=== PATIENT | male | born 1965 | race Caucasian/White ===

== ENCOUNTER 2017-03-08 18:40 | Inpatient (IN) | payer OTHER ==
[~2017-03-08] VITALS: Ht 185.4 cm; Wt 125.3 kg
[2017-03-08 19:40] VITALS: PULSE 77
[2017-03-08 19:57] VITALS: BP 141/89; PULSE 68; RESP 20; O2SAT 98
[2017-03-08] MEDS ORDERED: Alum-Mag Hydrox-Simeth 30 mL Suspension PO PRN (20:10)
[2017-03-08] MEDS ORDERED: Ondansetron 2 mg/mL 2 mL Inj IVPUSH PRN (20:10)
[2017-03-08] MEDS ORDERED: Senna-Docusate 8.6-50 mg Tablet PO PRN (20:10)
[2017-03-08] MEDS ORDERED: Polyethylene Glycol (PEG) 17 Gm Powder PO PRN (20:10)
[2017-03-08] MEDS ORDERED: Heparin 25K Unit/500mL 0.45 NS 25,000 UNIT in IV Premix 1 EACH IV SCH (20:40)
--- NOTE | 2017-03-08 21:00 | NUR ---
Admission: Pt admitted to room 2027 at 1935 from [facility]. Pt arrived in stable condition on 2L of oxygen per NC with a Heparin gtt infusing at 1000 units/hour or 20 mls/hour (gtt started at 1810 at [place]). Pt denied any chest pain. Vital signs stable. Initial assessment completed as charted with admission. Dr. Moncada at the bedside at 2024. Heparin gtt will continue as ordered. Pt to be NPO after MN. Will cont. to closely monitor. Next PTT at 0000.
--- NOTE | 2017-03-08 21:00 | PCM.HPMED ---
Subjective Date of Service Mar 08, 2017 Primary Provider: Admitting Physician: Per Conroy MD Primary Care Physician: Jon Hayward MD Attending Physician: Per Conroy MD Chief Complaint: Chest pain during stress test History of Present Illness: Ambrocio Pelayo is a 52-year-old man with past medical history significant for hypertension, hyperlipidemia, prediabetes and is a smoker who presented to the [facility] emergency department today due to chest pain during a scheduled outpatient stress test. Patient has had several years worth of exertional chest pain as well as some mild intermittent chest pain at rest. Patient has stated that the chest pain was mild, dull, substernal without any radiation but is accompanied by shortness of breath. The pain is elicited by exercise and stops seconds after exercise stops. Patient denies any palpitations, loss of consciousness, nausea, vomiting, diaphoresis, orthopnea, paroxysmal nocturnal dyspnea. Patient does note some lower extremity edema for which she was prescribed Lasix but he has not been taking it. Patient has a history of varicose veins which he believes is the cause of his edema. In the emergency department the patient was chest pain-free. Full dose aspirin was given, 300 mg dose of clopidogrel, and the patient started on heparin drip cardiac protocol. Also given 5 mg of IV metoprolol 1. At [facility] emergency department the patient's vital signs were blood pressure of 164/82, heart rate 82, respiratory rate 14, O2 saturation 99% on nasal cannula at 2 L a minute. Troponin I was negative. EKG showed Q waves in the patrick- lateral leads. Dr. Bass was contacted by the emergency department and requested the patient be transferred here for further evaluation. Review of Systems: A comprehensive review of systems was conducted with the patient and found to be negative except as above in the History of Present Illness. Allergies Coded Allergies: No Known Allergies (Verified Allergy, Unknown, 03/08/17) Home Medications Lisinopril 40 mg by mouth daily Metformin 500 mg by mouth daily Atorvastatin 40 mg by mouth at bedtime PMH Sinusitis Reactive airway disease Prediabetes Hypertension Hypercholesterolemia Surgical History Kidney surgery Family History Patient's father had 5 vessel bypass 20 years ago. Social History Hx Alcohol Use: No Hx Substance Use: No Hx Tobacco Use: Yes Smoking Status: Current Every Day Smoker Exam Vital Signs Vital Sign - Last Date Time Temp Pulse Resp B/P Pulse Ox O2 Delivery O2 Flow Rate FiO2 03/08/17 19:57 36.9 68 20 141/89 98 Nasal Cannula 2.00 Exam HEENT: Normocephalic, atraumatic. External ears without defect. Pupils equal, round, and reactive to light and accommodation. Anicteric sclerae, moist conjunctivae, and no lid lag. Oropharynx free of erythema and cobble stoning with moist mucosa. Neck: Supple with full range of motion. No jugular venous distension. No bruits. No lymphadenopathy or thyromegaly. Cardiovascular: Regular rate and rhythm with no murmurs, rubs, or gallops appreciated Pulmonary: Clear to auscultation bilaterally with no crackles, wheezes, or rhonchi. Normal respiratory effort with no use of accessory muscles. Abdomen: Bowel tones present. Soft, nontender, nondistended. No hepatosplenomegaly or masses appreciated. Extremities: No clubbing, cyanosis, or lymphadenopathy appreciated. Bilateral pitting lower extremity edema of the ankles. Skin: Normal temperature, turgor, and texture; no rash, ulcers, or subcutaneous nodules appreciated. Neurological: Cranial nerves grossly intact. Normal muscle strength, tone, and bulk. Reflexes, coordination, and sensory function within normal limits. No known gait impairment. Psychiatric: Normal mood and affect. Alert and oriented to person, place, and time. Lab and Diagnostics Labs CBC WBC 10.6 Hemoglobin 15.2 Hematocrit 45.2 Platelets 273 Troponin I 0.53 reference range 0.1- 1.5 is indeterminant, greater than 1.5 positive B MP Glucose 99 A BUN 19 Creatinine 1.0 Sodium 145 Potassium 4.6 Chloride 108 Carbon dioxide 26 Calcium 9.3 Total protein 7.1 Albumin 3.9 Bilirubin 0.4 Alkaline phosphatase 102 AST 29 ALT 45 Magnesium 1.9 X-Rays, CTs and MRIs Chest x-ray portable one view from outside facility Impression: Negative chest Assessment & Plan Ambrocio Pelayo is a 52-year-old man with past medical history significant for hypertension, hyperlipidemia, prediabetes and is a smoker who presented to the [facility] emergency department today due to chest pain during a scheduled outpatient stress test. Typical angina with a positive stress test, present on admission, active - DDx includes NSTEMI, demand ischemia, reactive airway disease exacerbation. - ECG revealed Q waves in anterolateral leads - Initial troponin-I 0.51. Trending troponins 3. - Lipid panel pending, A1C - Supplemental oxygen as needed. - Patient received full dose aspirin, 300 mg of Plavix, 5 mg of IV metoprolol, initiated on heparin drip. - Aspirin 81 mg daily, 75 mg Plavix daily, continue heparin drip - Sublingual nitroglycerin as needed. - Metoprolol tartrate 25 mg - Morphine when necessary for chest discomfort. Ativan when necessary anxiety. - Atorvastatin 40 mg HS. - Echocardiogram in a.m. - Telemetry monitoring - Nothing by mouth after midnight for probable catheterization tomorrow - Dr. Bass consulted by outside facility. We appreciate his time and expertise. Chronic issues, present on admission, stable: Prediabetes -Hold metformin -Monitor blood sugar -Heart healthy/constant carb diet Hyperlipidemia -Continue statin Hypertension -Continue lisinopril Nicotine dependence -Nicotine patch offered CODE STATUS: Full code Patient is admitted under inpatient status with expected length of stay greater than 2 midnights due to severity of presenting symptoms, risk of adverse event, and complexity of treatment plan. VTE Prophylaxis Indicated: Meets Criteria for Anticoag Therapy Resuscitation Status: CPR: Attempt Resuscitation Attending Statement The patient was seen and examined together with Dr. Moncada on 03/08 and I agree with the history, exam and plan as outlined in the note above. Angelita Moncada DO Mar 08, 2017 20:11 Vignesh Moreno MD Mar 08, 2017 23:21
[2017-03-08 21:15] VITALS: PULSE 76
[2017-03-08 21:37] LABS: Creatine Kinase 128 U/L (21-232); Magnesium 1.9 mg/dL (1.6-2.6)
[2017-03-08] MEDS: Sodium Chloride LOK Flush 10 mL Syringe IVFLUSH SCH (21:38)
[2017-03-08] MEDS ORDERED: METF500T4 PO (21:53)
[2017-03-08] MEDS ORDERED: LISI40TA PO (21:53)
[2017-03-08] MEDS ORDERED: LIP40 PO (21:54)
[2017-03-08 23:29] VITALS: BP 144/85; PULSE 78; RESP 17; O2SAT 99
[2017-03-08 23:50] VITALS: PULSE 73
[2017-03-09] VITALS (20 sets, daily range): BP systolic 122–155; BP diastolic 78–107; PULSE 54–95; RESP 8–16; O2SAT 93–98
[2017-03-09] MEDS: Heparin 5,000 Unit/mL Inj IVPUSH PRN ×2 (01:48→07:55)
[2017-03-09 02:18] LABS: BASOPHILS % (AUTO) 0.4 % (0-3); EOSINOPHILS % (AUTO) 3.9 % (0-5); MONOCYTES % (AUTO) 7.6 % (4-12); Mean Corpuscular Hemoglobin 29.7 pg (27.0-35.0); Mean Corpuscular Volume 86.2 fL (81-100); NEUTROPHILS % (AUTO) 51.6 % (40-74); Platelet Count 236 bil/L (150-400)
[2017-03-09 02:58] LABS: Creatine Kinase 117 U/L (21-232)
--- NOTE | 2017-03-09 05:18 | NUR ---
Cardiac/Provision of Educational Information: Pt has remained chest pain free throughout the night in a SR. Noted ectopy on the monitor consisting of PACs. Pt has been NPO since [place]. Heparin gtt infusing at 1200 units/hour. Next PTT at 0600. Smoking cessation packet provided to the pt as well as the Cardiac/Heart Attack and Diabetic booklets. Pt currently has a Nicoderm patch to the CELESTE.
[2017-03-09] MEDS: Sodium Chloride LOK Flush 10 mL Syringe IVFLUSH SCH ×2 (07:51→16:49)
[2017-03-09] MEDS ORDERED: CHOL100043 PO (09:02)
[2017-03-09] MEDS ORDERED: ASPI-973 PO (09:02)
--- NOTE | 2017-03-09 11:17 | CONS ---
[address] [address] CONSULTATION REPORT PATIENT: MOUNA LEO : 1965 MR#: [id number] ADMIT: 03/08/2017 JOB ID: [id number] DATE OF SERVICE: 03/09/2017 CHIEF COMPLAINT: Chest discomfort, abnormal stress test. HISTORY OF PRESENT ILLNESS: This 52-year-old gentleman has multiple risk factors for coronary artery disease. He has history of hypertension, dyslipidemia, and diabetes. He is being treated with metformin. He came to [facility] complaining of chest pain. Dr. Orantes performed a stress test. I was asked to review the stress test. EKG showed prior anterior DE with slight ST elevation in leads with pre-existing Q-waves. However, the patient had chest discomfort. He describes it as a tightness or heaviness in his chest while he was on the treadmill. Troponin I done at [facility] was positive. The initial one was negative, and the second one trended upwards and was positive. He was transferred to [facility]. Since he has been in the hospital, he has been pain free. The patient has not been very active. He states he gets chest tightness and shortness of breath with plmy-pk-tqlxudon exertion. 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 REVIEW OF SYSTEMS: Comprehensive review of system was done. Pertinent negatives are no GI or bleeding. No strokes. No upcoming surgeries. He admits being depressed. He is not on any medications. PAST MEDICAL HISTORY: Diabetes, hypertension, hypercholesterolemia, reactive airway disease. PAST SURGICAL HISTORY: He has had surgery on his kidneys. FAMILY HISTORY: He is adopted and does not know much in terms of family history. ALLERGIES: None. MEDICATIONS AT HOME: Lisinopril, metformin, and atorvastatin. PERSONAL HISTORY: He smokes about half a pack of cigarettes a day. Nondrinker, and denies any drug abuse. PHYSICAL EXAMINATION: On examination, comfortable. Replies in short sentences. Slightly depressed facies. Vitals are stable. Blood pressure 141/90, pulse 68, saturation 98%. Neck: Supple. Chest: Clear. Heart sounds S1, S2 regular. No gallops. Abdomen is soft. No organomegaly. Lungs: Clear to auscultation. Extremities: Negative for CCE. Mild edema of the ankles. DIRECTOR OF DEMENTIA OPERATIONS: Alert and oriented. LABORATORY DATA: Was reviewed. Creatinine is normal. White count is normal. His troponin T is negative. LDL cholesterol 71, HDL is 32. DIAGNOSTIC DATA: EKG shows prior anterior DE. ASSESSMENT AND PLAN: Chest discomfort: This gentleman has multiple risk factors for coronary artery disease. He has an EKG showing prior anterior infarct. The patient believes, about two years ago, he did have a rather severe episode of chest discomfort, and I am wondering if that was the culprit event. Given the fact that he had chest discomfort on his stress test, I have recommended angiography. The patient is agreeable. Risks, benefits, and alternatives were explained. This shall be done later today. In the interim, continue with beta blockers and MYRIAM inhibitors. His LDL is near target. His HDL is low, and he needs to start therapeutic lifestyle changes, especially smoking cessation and regular exercise. I thank you for letting me be involved in his care.
[2017-03-09] MEDS ORDERED: Heparin 1,000 Units/500 mL NS Premix IV ONE (11:59)
[2017-03-09] MEDS ORDERED: 0.9% Sodium Chloride 1,000 ML ONE (11:59)
[2017-03-09] MEDS ORDERED: Heparin 10,000 Unit/1,000 mL NS Premix IV ONE (11:59)
--- NOTE | 2017-03-09 12:11 | NUR ---
off to label stitcher Tele made aware. Pt aware of plan of care. No questions at this time. 2 patent IV's. Heparin gtt infusing. Pedal pulses marked. Addendum: 03/09/17 at 1300 by TORIBIO CALLEJAS RN Heparin gtt stopped prior to pt leaving floor.
[2017-03-09] MEDS ORDERED: Heparin 1,000 Unit/mL 10 mL Inj ONE (12:13)
[2017-03-09] MEDS ORDERED: Nitroglycerin 50,000 mcg/250 mL D5W Premix IV ONE (12:13)
[2017-03-09] MEDS ORDERED: fentaNYL-PF 50 mCg/mL 2 mL Inj ONE (12:22)
--- NOTE | 2017-03-09 13:57 | CS94 ---
[address] [address] DIAGNOSTIC CARDIAC CATHETERIZATION PATIENT: MOUNA LEO : 1965 MR#: [id number] ADMIT: 03/08/2017 JOB ID: [id number] SERVICE DATE: PROCEDURE: Selective right and left coronary angiography, left heart catheterization. INDICATION: Abnormal stress test. PROCEDURAL DETAILS: Please refer to the procedure log for complete details. Briefly, obtained access. Standard Marcela catheters were used. ANGIOGRAPHIC FINDINGS: 1. Left main: Long. No significant disease. 2. LAD is a large vessel. In its mid segment it is totally occluded. There is a short segment occlusion. The distal vessel is seen via ywsy-aj-opzt and cepan-iy-bllv collaterals. 3. Circumflex is nondominant. It gives collaterals to the distal right. In its ostium it has about a 30% lesion and another lesion in its proximal to mid segment of about 30%. No critical stenosis. The circumflex gives collaterals to the distal right coronary artery. 4. Right coronary artery is totally occluded proximally. There are bridging collaterals to the distal RCA. The distal RCA as mentioned is also seen via kwhq-xk-rsfku collaterals. The right coronary artery is not amenable to percutaneous intervention. 5. Left heart catheterization revealed an LVEDP of about 25. There was no gradient upon pullback. LV-gram showed severe LV dysfunction with EF of around 15% to 20%. ASSESSMENT AND PLAN: This gentleman has severe left ventricular (LV) dysfunction. His right coronary artery is very well suited for bypass surgery, as is his left anterior descending (LAD). Both of them are good distal targets. I will be referring him for consideration of coronary artery bypass grafting.
[2017-03-09] MEDS ORDERED: 0.9% Sodium Chloride 250 ML BOLUS IV PRN (15:05)
[2017-03-09] MEDS ORDERED: Sodium Chloride LOK Flush 10 mL Syringe IVFLUSH PRN (15:05)
[2017-03-09] MEDS ORDERED: Atropine 1 mg/10 mL (Code) Syringe IVPUSH PRN (15:05)
[2017-03-09] MEDS ORDERED: 0.9% Sodium Chloride 400 ML (4 HRS) IV ONE (15:05)
--- NOTE | 2017-03-09 16:20 | NUR ---
Return from director of labor relations AOX3. Tele SR 60-70's w/pac's. O2 on RA 80's. Increased O2 to 3L with adequate sats. NS infusing @ 100cc/hr until 6PM. Bedrest until 6PM. Care ongoing. Addendum: 03/09/17 at 1650 by TORIBIO CALLEJAS RN Right groin site soft, non-tender. Right pedal pulse weak as before he left for director of labor relations.
--- NOTE | 2017-03-09 17:07 | PCM.PNMED ---
Subjective Date of Service Mar 09, 2017 Subjective 52-year-old man with exertional chest pain presents with abnormal exercise treadmill test and unstable angina. No further symptoms overnight at rest. He expresses chest pain with minimal ambulation. No orthopnea dyspnea or PND. Exam Vital Signs Vital Sign - Last Date Time Temp Pulse Resp B/P Pulse Ox O2 Delivery O2 Flow Rate FiO2 03/09/17 16:29 36.7 70 12 138/84 94 Nasal Cannula 03/09/17 07:44 2.00 Intake and Output 03/08/17 03/08/17 03/09/17 Cumulative From/Thru 15:00 23:00 07:00 03/08/17 19:48 - 03/09/17 04:56 Intake Total 827 ml 827 ml Output Total 800 ml 800 ml Balance 27 ml 27 ml Intake Oral 630 ml 630 ml IV Total 197 ml 197 ml Output Urine Total 800 ml 800 ml # Bowel Movements 0 0 Exam General: Moderately obese, no acute distress HEENT: sclerae anicteric, oral mucosa moist Neck: no JVD Chest: clear to auscultation Cardiac: S1S2, no murmur Abdomen: BS normal, non-tender Extremities: Trace edema Neuro: A&O, cranial nerves symmetric, motor strength 5/5, coordination normal IVs and Medications Medications Reviewed: Medications were reviewed in detail Lab and Diagnostics Result Diagram: 03/09/17 02003/09/17 020 X-Rays, CTs and MRIs Chest x-ray portable one view from outside facility Impression: Negative chest Additional Diagnostics Coronary catheterization 03/09/17 1. Left main: Long. No significant disease. 2. LAD is a large vessel. In its mid segment it is totally occluded. There is a short segment occlusion. The distal vessel is seen via qpgo-qk-toif and lhesf-pz-dage collaterals. 3. Circumflex is nondominant. It gives collaterals to the distal right. In its ostium it has about a 30% lesion and another lesion in its proximal to mid segment of about 30%. No critical stenosis. The circumflex gives collaterals to the distal right coronary artery. 4. Right coronary artery is totally occluded proximally. There are bridging collaterals to the distal RCA. The distal RCA as mentioned is also seen via ekwl-ff-jsknt collaterals. The right coronary artery is not amenable to percutaneous intervention. 5. Left heart catheterization revealed an LVEDP of about 25. There was no gradient upon pullback. LV-gram showed severe LV dysfunction with EF of around 15% to 20%. . Assessment & Plan Ambrocio Pelayo is a 52-year-old man with past medical history significant for hypertension, hyperlipidemia, prediabetes and is a smoker who presented to the [facility] emergency department today due to chest pain during a scheduled outpatient stress test. Acute, active problems: #Unstable angina with a positive stress test, present on admission, active. ECG revealed Q waves in anterolateral leads. Troponins negative 3. Catheterization reveals left main equivalent disease. - Cardiology to orchestrate referral for CABG - Hold P2Y12 inhibitor - Nitrates, metoprolol and/or morphine for recurrent chest pain - Continue heparin drip - Continue low-dose aspirin, atorvastatin # Acute systolic congestive heart failure, present on admission. He is asymptomatic at rest. NYHA class III symptoms with exertion. Ischemic etiology. - Continue MYRIAM inhibitor, metoprolol - No need for IV diuretic at present # Hypertension -Continue lisinopril - Monitor with adjustment of other cardiac medications Chronic issues, present on admission, stable: Prediabetes -Hold metformin -Monitor blood sugar -Heart healthy/constant carb diet Hyperlipidemia -Continue high intensity statin Nicotine dependence -Nicotine patch offered CODE STATUS: Full code Anticipate hospital transfer in 1-2 days VTE Prophylaxis: Other (IV heparin) Resuscitation Status: CPR: Attempt Resuscitation Time spent 30 minutes Miguelito Pedraza MD Mar 09, 2017 17:07
--- NOTE | 2017-03-09 17:53 | NUR ---
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 Right groin perclose without bleeding or hematoma. Pedal pulse present. Family at bedside. Patient taking PO but HNV. Report called to receiving RN. Patient transferred back to room 2027 by bed at 1600.
[2017-03-10] MEDS: Sodium Chloride LOK Flush 10 mL Syringe IVFLUSH SCH ×2 (00:26→08:12)
[2017-03-10 03:51] VITALS: BP 148/81; PULSE 68; RESP 14; O2SAT 98
--- NOTE | 2017-03-10 04:30 | NUR ---
Procedure site Right groin perclose without bleeding or hematoma; gauze dressing changed once without further bleeding. Pedal pulse present. Pt able to ambulate safely to BR, voiding adequately, IV saline locked. No complaints of pain. Hourly rounding ongoing.
[2017-03-10 05:44] VITALS: PULSE 66
[2017-03-10 08:00] VITALS: PULSE 66
[2017-03-10 08:19] VITALS: BP 165/102; PULSE 61; RESP 14; O2SAT 98
--- NOTE | 2017-03-10 11:56 | DRSVH ---
[facility] [address] [place] [address] Echocardiogram Report Name: MOUNA LEO Date: 02/13 Height: 73 in Hospital Exam Location: [facility] Weight: 282 lb Gender: Other BSA: 2.5 m2 : 1965 Age: 52 yrs BP: 148/81 mm Hg Reason For Study: Chest pain Ordering Physician: HOSPITALIST [facility] Performed By: Sadia Grullon Referring Physician: Cyrus Mitchell Interpretation Summary The left ventricle is mild-moderately dilated. There is mild concentric left ventricular hypertrophy. Left ventricular systolic function is moderate to severely reduced. The ejection fraction is estimated to be 30-35%. There is akinesis along the most the apical region. There is akinesis along the most the apical region. There is severe hypokinesis along the basal and distal inferior wall while the mid inferior wall has preserved contractility. The mid/distal anterior and distal inferoseptum are hypokinetic as well. The lateral appears to have the most preserved contractility. Findings are consistent with ischemic heart disease but stress induced cardiomyopathy should be considered as well. Cardiology consultation is recommended. Cannot exclude a possible calcified mural thrombus in the apex. The right ventricle grossly appears normal in size with probable normal systolic function. The right ventricular systolic pressure is estimated at 23 mmHg assuming a right atrial pressure of 3 mm Hg. The left atrium is mildly dilated. Right atrial size is normal. There is no significant valvular heart disease. The ascending aorta is mild-moderately enlarged. Procedure: There has been no significant change since the previous study. The study quality was technically adequate. There is no prior echocardiogram noted for this patient. A contrast injection of Definity was performed to improve assessment of LV function. The heart rate ranged between 54-72 bpm during the study. Left Ventricle: The left ventricle is mild-moderately dilated. There is mild concentric left ventricular hypertrophy. Cannot exclude a possible calcified mural thrombus in the apex. Left ventricular systolic function is moderate to severely reduced. The ejection fraction is estimated to be 30- 35%. There is akinesis along the most the apical region. There is severe hypokinesis along the basal and distal inferior wall while the mid inferior wall has preserved contractility. The mid/distal anterior and distal inferoseptum are hypokinetic as well. The lateral appears to have the most preserved contractility. Findings are consistent with ischemic heart disease but stress induced cardiomyopathy should be considered as well. Cardiology consultation is recommended. Diastolic function could not be accurately assessed due to contradictory data. Right Ventricle: The right ventricle grossly appears normal in size with probable normal systolic function. Atria: The left atrium is mildly dilated. Right atrial size is normal. The interatrial septum is intact with no evidence for an atrial septal defect. Mitral Valve: The mitral valve leaflets appear thickened, but open well. There is trace mitral regurgitation. Aortic Valve: The aortic valve is trileaflet. The aortic valve opens well. There is mild aortic valve sclerosis. No aortic regurgitation is present. Tricuspid Valve: The tricuspid valve is not well visualized, but is grossly normal. There is a trace or physiologic amount of tricuspid regurgitation. The right ventricular systolic pressure is estimated at 23 mmHg assuming a right atrial pressure of 3 mm Hg. Pulmonic Valve: The pulmonic valve is normal in structure and function. There is trace pulmonic regurgitation. There is no significant valvular heart disease. Great Vessels: The aortic root is normal size. The ascending aorta is mild- moderately enlarged. The pulmonary artery is normal size. The IVC is of normal diameter and collapses greater than 50% with a sniff. This suggests a low right atrial pressure of 3 mm Hg. Pericardium/ Pleura There is no pericardial effusion. There is no pleural effusion. MMode/2D Measurements & Calculations LVIDd: 6.4 cm RA long axis LVOT diam LVIDs: 4.6 cm LA A2 area: 24.4 cm FS: 27.6 % LA A4 area: 23.1 cm RA area AoV Opening EPSS: 1.3 cm LA length (vol): 5.8 cm IVSd: 1.0 cm LA vol: 82.7 ml : 20.8 cm Ao root diam LVPWd: 1.1 cm LA vol index RA vol : 64.5 ml asc Aorta RA Diam: 4.0 cm IVC diam: 1.7 cm : 25.9 mm2 LV hudson. diameter/BSA LV sys. diameter/BSA (cm/m^2): 2.6 (cm/m^2): 1.8 Doppler Measurements & Calculations Ao V2 max MV E max mark MV E/A: 1.7 TR max mark : 89.6 cm/sec : 118.1 cm/sec Med Peak E' Mark : 225.0 cm/sec Ao max PG MV A max mark TR max PG : 4.4 mmHg : 68.5 cm/sec E/E' med: 19.3 : 20.3 mmHg Ao mean PG MV P1/2t: 58.3 msec Lat Peak E' Mark PA V2 max : 56.5 cm/sec LVOT Max Mark E/E' lat: 28.8 PA mean PG : 99.2 cm/sec E/e' average : 0.80 mmHg ADDISON(I,D): 5.4 cm PA Accel Time sev ratio : 0.11 sec MV dec time MV P1/2t max mark Ao V2 mean LV V1 max PG : 0.20 sec : 44.9 cm/sec Ao V2 VTI: 13.0 cm LV V1 VTI MVA(P1/2t): 3.8 cm2 : 19.1 cm ADDISON(V,D): 4.0 cm2 PA V2 mean ADDISON indexed to BSA : 43.0 cm/sec (cm^2/m^2): 2.2 Reading Physician:DENISE
[2017-03-10 12:15] VITALS: BP 140/78; PULSE 99; RESP 20; O2SAT 99
--- NOTE | 2017-03-10 12:27 | NUR ---
Social Work: Initial Assessment/Multidisciplinary Rounds D: Per EMR review, pt is a 52 year old male admitted for Elevated Troponins. Pt is [facility] [employer] insurance; pt has no LTC or VA benefits. PCP is Jon Hayward MD. NOK is Rajwinder Pelayo, mother, . Advanced directives not complete- information provided by [employer] CLAIM EXAMINER. Readmit score is low, 1. Pt discussed in am rounds. pt is not yet medically stable and may require transfer to a higher level of care. Capacity for self-care addressed; no concerns or d/c needs identified by team. MAR[employer] INSURANCE CLAIM EXAMINER met with the patient and his mother at bedside. Sw role explained. Contact information and d/c planning checklist provided. Pt lives in a trailer behind his parent's home in [place]. Pt is I with ambulation, uses no DME and is I with all self care. Pt continues to drive, has never had HH or skilled rehab. Pt and mother identify no sw needs or concerns about discharge and state that the patient has been participating in his own care during hospitalization. Mother will transport when pt is ready for d/c. A: Pt who is I at baseline P: Anticipate pt to either transfer to a higher level of care versus discharge home with no sw needs; [employer] INS[employer] CLAIM EXAMINER to continue to follow to assess for unmet sw d/c needs. GERRY Bartlett Addendum: 03/10/17 at 1231 by CHINO RIVERA Amended: Links added.
[2017-03-10] MEDS ORDERED: NITR0.4T6 SL (13:47)
[2017-03-10] MEDS ORDERED: METO25TA6 PO (13:47)
--- NOTE | 2017-03-10 13:49 | PCM.DIMED ---
Discharge Instructions Date of Service Mar 10, 2017 Dates of Hospitalization Mar 08, 2017 at 19:38 Discharge Diagnosis Discharge Diagnosis Unstable angina Prediabetes Obesity Diet Discharge Diet: Heart Healthy, Diabetic Activity Discharge Activity: Limited until seen by PCP Call your provider Call your provider for: Chest pain Patient Instructions Patient Instructions If you experience chest pain with activities than usual rest. If discomfort persists for 10 minutes then you should use nitroglycerin. If no relief from nitroglycerin within 15 minutes and call 911. Follow-up Provider: Jose Bass MD Follow-up with PCP in: 1 week (call for a posthospitalization follow-up appointment with Dr. Bass) Miguelito Pedraza MD Mar 10, 2017 13:49
--- NOTE | 2017-03-10 14:30 | NUR ---
Discharge: VSS, tele SR 60s, RA O2 sats 95% or greater. Tolerating PO intake, voiding independently, up ad jamie in room. IVs d/c'd intact. Given care notes r/t metoprolol and sublingual nitro, cardiac cath discharge instructions. Pt to follow up with cardiology in one week, cardiology office to call and schedule. D/c'd home with all personal belongings, parents providing transport.
--- NOTE | 2017-03-10 15:12 | PROG NOTE ---
[address] [address] PROGRESS NOTE PATIENT: MOUNA LEO : 1965 MR#: [id number] ADMIT: 03/08/2017 JOB ID: [id number] DATE: SUBJECTIVE: No chest discomfort. No shortness of breath. Feeling better. OBJECTIVE: Vital signs stable. Pulse 80, blood pressure 140/78. Neck supple, no JVD. Chest clear. Heart sounds S1 and S2 regular. Groin well healed. LABORATORY DATA: Creatinine is 0.85. MEDICATIONS: Aspirin, metoprolol, Lipitor, nicotine patches. Plavix has been held. ASSESSMENT AND PLAN: This patient needs bypass surgery. He need to have his medications optimized as well. I would like to see him in the office as an outpatient. I referred him to [facility] surgeons for early consultation. I spoke with their office staff. He will be seen within the week. I would like to see him back postoperatively. Following his surgery I would like him to be started on MYRIAM inhibitors as well and his beta blockade needs to be up-titrated.
--- NOTE | 2017-03-11 18:01 | PCM.DC.MED ---
Discharge Summary Date of Service Mar 10, 2017 Dates of Hospitalization Date of Hospital Admission Mar 08, 2017 at 19:38 Date of Discharge: Mar 10, 2017 Providers: Admitting Physician: Vignesh Moreno MD Primary Care Physician: Jon Hayward MD Attending Physician: Michael Thomas MD Diagnosis at Time of Discharge Diagnosis at Time of Discharge Unstable angina Prediabetes Obesity Consultations Cardiology, Dr. Randy Bass ASSESSMENT AND PLAN: This patient needs bypass surgery. He need to have his medications optimized as well. I would like to see him in the office as an outpatient. I referred him to [facility] surgeons for early consultation. I spoke with their office staff. He will be seen within the week. I would like to see him back postoperatively. Following his surgery I would like him to be started on MYRIAM inhibitors as well and his beta blockade needs to be up-titrated. . Procedures XRay, CTs & MRIs Chest x-ray portable one view from outside facility Impression: Negative chest Other Diagnostics Coronary catheterization 03/09/17 1. Left main: Long. No significant disease. 2. LAD is a large vessel. In its mid segment it is totally occluded. There is a short segment occlusion. The distal vessel is seen via [id number] and jhuuo-[id number]-ncmh collaterals. 3. Circumflex is nondominant. It gives collaterals to the distal right. In its ostium it has about a 30% lesion and another lesion in its proximal to mid segment of about 30%. No critical stenosis. The circumflex gives collaterals to the distal right coronary artery. 4. Right coronary artery is totally occluded proximally. There are bridging collaterals to the distal RCA. The distal RCA as mentioned is also seen via hehp-yj-hkhlz collaterals. The right coronary artery is not amenable to percutaneous intervention. 5. Left heart catheterization revealed an LVEDP of about 25. There was no gradient upon pullback. LV-gram showed severe LV dysfunction with EF of around 15% to 20%. . Brief History Ambrocio Pelayo is a 52-year-old man with past medical history significant for hypertension, hyperlipidemia, prediabetes and is a smoker who presented to the [facility] emergency department today due to chest pain during a scheduled outpatient stress test. Patient has had several years worth of exertional chest pain as well as some mild intermittent chest pain at rest. Patient has stated that the chest pain was mild, dull, substernal without any radiation but is accompanied by shortness of breath. The pain is elicited by exercise and stops seconds after exercise stops. Patient denies any palpitations, loss of consciousness, nausea, vomiting, diaphoresis, orthopnea, paroxysmal nocturnal dyspnea. Patient does note some lower extremity edema for which she was prescribed Lasix but he has not been taking it. Patient has a history of varicose veins which he believes is the cause of his edema. In the emergency department the patient was chest pain-free. Full dose aspirin was given, 300 mg dose of clopidogrel, and the patient started on heparin drip cardiac protocol. Also given 5 mg of IV metoprolol 1. At [facility] emergency department the patient's vital signs were blood pressure of 164/82, heart rate 82, respiratory rate 14, O2 saturation 99% on nasal cannula at 2 L a minute. Troponin I was negative. EKG showed Q waves in the patrick- lateral leads. Dr. Bass was contacted by the emergency department and requested the patient be transferred here for further evaluation. Hospital Course #Unstable angina with a positive stress test, present on admission, active. ECG revealed Q waves in anterolateral leads. Troponins negative 3. Catheterization reveals left main equivalent disease. - Cardiology to orchestrate referral for CABG - Hold P2Y12 inhibitor - Nitrates, metoprolol - Continue low-dose aspirin, atorvastatin # Acute systolic congestive heart failure, present on admission. He is asymptomatic at rest. NYHA class III symptoms with exertion. Ischemic etiology. - Continue MYRIAM inhibitor, metoprolol # Hypertension, chronic. Poorly controlled during hospitalization with average values approximately 155/95 -Continue lisinopril - Monitor with increased metoprolol - Follow up with PCP for augmentation # Prediabetes -Resume metformin -Monitor blood sugar -Heart healthy/constant carb diet # Hyperlipidemia -Continue high intensity statin # Nicotine dependence - Counseled by [facility] health benefits of tobacco cessation CODE STATUS: Full code Exam Vital Signs (Last) Date Time Temp Pulse Resp B/P Pulse Ox O2 Delivery O2 Flow Rate FiO2 03/10/17 12:15 37.2 99 20 140/78 99 Room Air 03/10/17 08:19 2.00 Exam General: Moderately obese, no acute distress HEENT: sclerae anicteric, oral mucosa moist Neck: no JVD Chest: clear to auscultation Cardiac: S1S2, no murmur Abdomen: BS normal, non-tender Extremities: Trace edema Neuro: A&O, cranial nerves symmetric, motor strength and coordination normal Test 03/08/17 20:45 03/09/17 02:00 03/09/17 11:50 03/10/17 08:50 Hemoglobin A1c 6.0% (4.8-5.6) Magnesium Level 1.9mg/dL (1.6-2.6) Thyroid Stimulating Hormone (TSH) 1.510uIU/mL (0.450-4.500) Hold Max Top Tube Received (Received) White Blood Count 8.1th/mm3 (3.8-10.1) Red Blood Count 4.72mil/mm3 (4.40-5.80) Hemoglobin 14.0g/dL (13.8-17.2) Hematocrit 40.7% (41.0-50.0) Mean Corpuscular Volume 86.2fL (81-100) Mean Corpuscular Hemoglobin 29.7pg (27.0-35.0) Mean Corpuscular Hemoglobin Concent 34.4% (32.0-37.0) Red Cell Distribution Width 13.2% (12.3-15.4) Platelet Count 236bil/L (150-400) Neutrophils (%) (Auto) 51.6% (40-74) Lymphocytes (%) (Auto) 36.3% (14-46) Monocytes (%) (Auto) 7.6% (4-12) Eosinophils (%) (Auto) 3.9% (0-5) Basophils (%) (Auto) 0.4% (0-3) Total Creatine Kinase 117U/L (21-232) Creatine Kinase MB 4.0ng/mL (0.0-10.4) Creatine Kinase MB % % (0.0-5.0) Troponin T 0.010ug/L (0.0-0.011) Triglycerides Level 170mg/dL (0-149) Cholesterol Level 137mg/dL (100-199) LDL Cholesterol, Calculated 71.000mg/dL (0-99) VLDL Cholesterol 34.000mg/dL HDL Cholesterol 32mg/dL (>39) Cholesterol/HDL Ratio 4.28 (0.0-4.4) Activated Partial Thromboplast Time 39.3sec (22.8-33.0) Sodium Level 137mEq/L (134-144) Potassium Level 4.0mEq/L (3.5-5.2) Chloride Level 102mEq/L (97-108) Carbon Dioxide Level 24mmol/L (18-29) Blood Urea Nitrogen 14mg/dL (6-24) Creatinine 0.85mg/dL (0.76-1.27) Estimat Glomerular Filtration Rate 101mL/min (>59) Glucose Level 91mg/dL (60-99) Calcium Level 8.7mg/dL (8.5-10.1) Discharge Medications Discharge Medications Aspirin (Aspirin) 81 Mg Tablet 81 MG PO DAILY (Reported) Atorvastatin (Lipitor) 40 Mg Tablet 40 MG PO DAILY (Reported) Cholecalciferol (Vitamin D3) (Vitamin D) 1,000 Unit Tablet 1,000 UNIT PO DAILY ( Reported) Lisinopril (Lisinopril) 40 Mg Tablet 40 MG PO DAILY (Reported) Metformin (Metformin) 500 Mg Tablet 500 MG PO DAILY (Reported) Metoprolol Tartrate (Metoprolol Tartrate) 25 Mg Tablet 25 MG PO Q12 Prescribed by: MICHAEL THOMAS MD As needed Nitroglycerin SL (Nitroglycerin SL) 0.4 Mg Tab.subl 0.4 MG SL DIRECTED PRN PRN For Chest Pain For persistent chest pain despite rest, take 1 tab sub-lingual every 5 minutes for 3 doses maximum Prescribed by: MICHAEL THOMAS MD Followup Plan Disposition: Home Discharge Diet: Heart Healthy, Diabetic Discharge Activity: Limited until seen by PCP Patient Instructions If you experience chest pain with activities than usual rest. If discomfort persists for 10 minutes then you should use nitroglycerin. If no relief from nitroglycerin within 15 minutes and call 911. Follow-up Provider: Jsoe Bass MD Follow-up with PCP in: 1 week (call for a posthospitalization follow-up appointment with Dr. Bass) Time spent 35 minutes copies to: Jose Bass MD, Jeffrey W MD Mar 10, 2017 13:50
== END 2017-03-10 14:00 | disposition home or self-care (01) | DRG 286 ==
LOC: PCC 19:38
PROVIDERS: ADMIT Hospitalist; ATTEND Internal Medicine
PROC: 4A023N7 Measurement of Cardiac Sampling and Pressure, Left Heart, Percutaneous Approach (ICD-10-PCS; principal; 2017-03-09)
PROC: B2111ZZ Fluoroscopy of Multiple Coronary Arteries using Low Osmolar Contrast (ICD-10-PCS; 2017-03-09)
PROC: B2151ZZ Fluoroscopy of Left Heart using Low Osmolar Contrast (ICD-10-PCS; 2017-03-09)
DX: I25.119 Atherosclerotic heart disease of native coronary artery with unspecified angina pectoris (principal); I50.21 Acute systolic (congestive) heart failure; I10 Essential (primary) hypertension; F17.200 Nicotine dependence, unspecified, uncomplicated; E78.5 Hyperlipidemia, unspecified; E66.9 Obesity, unspecified; Z68.36 Body mass index [BMI] 36.0-36.9, adult